=== PATIENT | male | born 1975 | race American Indian/Alaskan Native ===

== ENCOUNTER 2017-01-30 22:24 | Emergency (ER) | payer OTHER ==
--- NOTE | 2017-01-31 02:29 | Emergency Department Report ---
HPI - General Chief Complaint: Dental/Oral Time Seen by Provider: 01/31/17 01:42 - HPI HPI: Patient complaining of dental pain and cavities assessment ongoing. He said he has periodontal disease and he has a dentist but he hasn't gone to see the dentist. He is complaining of pain to his right lower tooth. He said this started again yesterday. He states that he took [id number] medication and it didn't help. Denies any sore throat, swollen tongue, drooling, nasal congestion or runny nose. Denies any headache, cough, chest pain or shortness of breath. Denies any fever or chills. Pain is 9 out of 10 and achy and worse with eating and talking better with resting. Patient has a history of high blood pressure and his blood pressure was 182/99 . He is asymptomatic with elevated blood pressure. She reports is indicated he is in pain. Reports that he has a dentist and he does not need a referral. ED Past Medical Hx - Past Medical History Previous Medical History?: Yes Hx Hypertension: Yes - Surgical History Past Surgical History?: No - Family History Family history: hypertension - Social History Smoking Status: Current Every Day Smoker Substance Use Type: None - Medications Home Medications: Home Medications Medication Instructions Recorded Confirmed Last Taken Type Diltiazem HCl [Diltiazem ER] 360 mg PO DAILY 09/27/13 09/27/13 09/27/13 07:00 History Hydrochlorothiazide [Hctz] 12.5 mg PO QDAY 09/27/13 09/27/13 09/27/13 07:00 History HYDROcodone/APAP 7.5-325 [Wallace 1 each PO Q6HR PRN #20 tablet 09/28/13 Unknown Rx 7.5/325 mg] Penicillin Vk [Veetids TAB] 500 mg PO QID #40 tablet 09/28/13 Unknown Rx Acetaminophen/Codeine [Tylenol 1 tab PO Q6H PRN 4 Days #16 tab 01/31/17 Unknown Rx /Codeine # 3 tab] Clindamycin [Clindamycin CAP] 300 mg PO Q8H 10 Days #30 cap 01/31/17 Unknown Rx Ibuprofen [Motrin 800 MG tab] 800 mg PO TID PRN 7 Days #21 tablet 01/31/17 Unknown Rx ED Review of Systems ROS: Stated complaint: TEETH AND GUM PAIN Other details as noted in HPI Comment: All other systems reviewed and negative Constitutional: no symptoms reported Eyes: denies: eye pain, eye discharge ENT: dental pain. denies: ear pain, throat pain, congestion Respiratory: no symptoms reported Cardiovascular: denies: chest pain, palpitations, dyspnea on exertion, edema, syncope, paroxysmal nocturnal dyspnea Gastrointestinal: denies: abdominal pain, nausea, vomiting, diarrhea, constipation Musculoskeletal: denies: back pain, joint swelling, arthralgia, myalgia Skin: denies: rash Neurological: denies: headache, weakness, numbness, paresthesias, confusion, abnormal gait, vertigo Physical Exam - Physical Exam Vital Signs: Vital Signs 01/30/17 22:47 Temperature 98.7 F Pulse Rate 88 Respiratory 18 Rate Blood Pressure 182/99 O2 Sat by Pulse 99 Oximetry Vital Signs 01/30/17 01/31/17 22:47 04:05 Temperature 98.7 F Pulse Rate 88 82 Respiratory 18 18 Rate Blood Pressure 182/99 Blood Pressure 168/86 [Right] O2 Sat by Pulse 99 97 Oximetry General: This is a 41-year-old male well-nourished well-developed in no acute distress. Physical Exam: Head: Normocephalic, atraumatic, no abrasion, no bruising and no contusion. Eyes: Biateral pupils equal and reactive to light, bilateral EOM intact.. Bilateral conjunctival and sclera without injection, normal accommodation. No nystagmus Mouth: Moist, no pharyngeal exudate or erythema, tongue is normal, no peritonsillar abscess, uvula is midline. No tonsillar enlargement, oral airways patent. Patient with some missing teeth, dental caries and inflammation of gums. He also has tenderness to tooth #32 without any induration, erythema. No facial swelling. Ears: Joe. TM pearly ordoñez, bilaterally EAC without any redness or drainage. No mastoid bone tenderness. Nose: Moist, normal mucosa. Maxillary and frontal sinuses nontender to palpate and no drainage noted. Neck: Supple, No Cervical adenopathy, full range of motion and no C-spine tenderness. Cardiovascular: S1, S2. Regular rate and rhythm. No murmur. Capillary refill is less then 3 seconds. Lungs: Clear to auscultate bilaterally. No rhonchi, wheezes or rales. No chest wall tenderness. No chest contusion. No bruising to chest. Extremity: NO Clubbing, cyanosis or edema. +2 pulses to all extremities and no neurovascular compromise Skin: Clean, dry and intact. No rash or lesions. Psych: Normal mood and behavior ED Course Vital Signs 01/30/17 22:47 Temperature 98.7 F Pulse Rate 88 Respiratory 18 Rate Blood Pressure 182/99 O2 Sat by Pulse 99 Oximetry Vital Signs 01/30/17 01/31/17 22:47 04:05 Temperature 98.7 F Pulse Rate 88 82 Respiratory 18 18 Rate Blood Pressure 182/99 Blood Pressure 168/86 [Right] O2 Sat by Pulse 99 97 Oximetry - Reevaluation(s) Reevaluation #1: 01/31/17 03:59 He did not want any pain medication in emergency room. He said he wants to be started on antibiotic and have pain medication to go home ED Medical Decision Making - Medical Decision Making ED course: Patient here completed toothache.. said that he has gum disease and that he has a dentist. He said his tooth has been hurting him on and off and he hasn't had the time to go to a dentist. Patient blood pressure is also elevated and he has a history of high blood pressure. He is asymptomatic with his high blood pressure. I discussed with them that he has gum disease, dental caries and will need to follow up with his dentist for further evaluation and treatment. I also discussed with him the consequences of gum disease on his health. I discussed the patient that he needs to think a lot of his blood pressure and schedule appointment with his primary care physician for follow-up visit. I also discussed and the consequences of having high blood pressure over a prolonged period of time without medical management. He voiced understanding the discharge instructions and treatment plan and patient discharged home a prescription for Tylenol 3, clindamycin and Motrin. Discharged home to follow-up with his primary care physician who is [facility] and his dentist which he said he has one. Critical care attestation.: If time is entered above; I have spent that time in minutes in the direct care of this critically ill patient, excluding procedure time. ED Disposition Clinical Impression: Toothache, Gingivitis, Dental caries, Elevated blood pressure reading with diagnosis of hypertension Disposition: DC-01 TO HOME OR SELFCARE Is pt being admited?: No Does the pt Need Aspirin: No Condition: Stable Instructions: Dental Caries (ED), Gingivitis (ED), Heart Healthy Diet (ED), DASH Eating Plan (ED), Low Sodium Diet (ED), Hypertension (ED), Toothache (ED) Additional Instructions: gargle with Listerine mouth wash twice daily Please use floss with the remainder of teeth that you have twice daily Please follow-up with your dentist. Call on Wednesday or Wednesday to schedule an appointment and let you dentist knows the year treated in emergency room for dental problems and was placed on antibiotic. Reason drive or operate heavy machinery while taking Tylenol No. 3 as this medication causes drowsiness Gum disease can lead to heart disease, heart attack, heart valve disease, infection or any blood and ultimately . Please keep a log a few blood pressure daily and take to your primary care visit with you at [place]. Your blood pressure was elevated today. Schedule appointment to see her [facility] physician In 3-5 days Prescriptions: Acetaminophen/Codeine [Tylenol /Codeine # 3 tab] 1 tab PO Q6H PRN 4 Days #16 tab PRN Reason: Pain, Moderate (4-6) Clindamycin [Clindamycin CAP] 300 mg PO Q8H 10 Days #30 cap Ibuprofen [Motrin 800 MG tab] 800 mg PO TID PRN 7 Days #21 tablet PRN Reason: Pain Referrals: PRIMARY CARE, [Primary Care Provider] - 3-5 Days [facility] [Provider Group] - 3-5 Days Forms: Work/School Release Form(ED)
[2017-01-31 04:50] VITALS: BP 168/86
== END 2017-01-31 04:10 | disposition home or self-care (01) ==
LOC: ED 22:24
DX: K02.9 Dental caries, unspecified (principal); K05.10 Chronic gingivitis, plaque induced; I10 Essential (primary) hypertension; F17.200 Nicotine dependence, unspecified, uncomplicated
CPT/HCPCS: 99282